=== PATIENT | male | born 1985 | race Caucasian/White ===

== ENCOUNTER 2020-05-26 12:03 | Outpatient (REF) | payer BC, SELFPAY | END 2020-05-26 12:04 | disposition home or self-care (01) | LOC: HO.LAB 12:03 | PROVIDERS: Visit Provider Internal Medicine | DX: Z20.822 Contact with and (suspected) exposure to COVID-19 (principal) | CPT/HCPCS: 36415; C9803; U0003 ==

== ENCOUNTER 2020-06-09 12:56 | Outpatient (REF) | payer BC, SELFPAY | END 2020-06-09 12:57 | disposition home or self-care (01) | LOC: HO.LAB 12:56 | PROVIDERS: Visit Provider Internal Medicine | DX: Z20.822 Contact with and (suspected) exposure to COVID-19 (principal) | CPT/HCPCS: 36415; C9803; U0003; U0005 ==

== ENCOUNTER → 2020-10-12 10:17 | Outpatient (REF) | payer BC, SELFPAY ==
--- NOTE | 2020-10-12 11:05 | ECG_ITS ---
Hook-up date: 2020-10-12 10:51:00 Duration: 47:59:00 Test Indications: DIZZINESS Medications: [id number] QRS complexes * Ventricular ectopics which represent % of total QRS comp. * Supraventricular ectopics which represent % of total QRS comp. * Paced QRS complexs which represent % of total QRS comp. VENTRICULAR ECTOPY * Isolated * Bigeminal Cycles * Couplets * Runs * Beats in Runs * Beats LONGEST at * BPM at :: -- * Beats FASTEST at * BPM at :: -- SUPRAVENTRICULAR ECTOPY * Isolated * Couplets * Runs * Beats in Runs * Beats LONGEST at * BPM at :: -- * Beats FASTEST at * BPM at :: -- HEART RATES 52 MIN at 13:10:14 2020-10-12 75 AVG 131 MAX at 21:58:48 2020-10-12 LONGEST RR 1.4240 secs at 11:35:25 2020-10-13 S-T LEVELS Channel 1 - 128 mm at 10:51:00 2020-10-12 - 128 mm at 10:51:00 2020-10-12 Channel 2 - 128 mm at 10:51:00 2020-10-12 - 128 mm at 10:51:00 2020-10-12 Channel 3 - 128 mm at 03:01:01 -- - 128 mm at 03:01:01 Basic rhythm Normal sinus rhythm No long pause or profound bradycardia No dangerous dysrhythm periods No diary submitted Referred By: Heather Ortiz Overread By: TULIO STEWART MD
== END ==
LOC: HO.SL 10:17
PROVIDERS: PCP Family Medicine; Visit Provider Family Medicine
DX: G47.30 Sleep apnea, unspecified (principal); R42 Dizziness and giddiness
CPT/HCPCS: 93225; 93226; 95806